=== PATIENT | male | born 1950 | race Caucasian/White ===

== ENCOUNTER 2018-07-29 12:44 | Emergency (ER) | payer OTHER ==
[~2018-07-29 12:44] MED LIST: Iopamidol 370 76% 100 ML VIAL ONE
[2018-07-29] MEDS ORDERED: Aspirin Chewable 81 MG TAB ONE (12:59)
[2018-07-29] MEDS ORDERED: Nitroglycerin 0.4 MG TAB 1 EACH ONE (12:59)
[2018-07-29 13:05] LABS: #Eosinphils 0.2 thou/uL (0.0-0.7); #Lymphocytes 1.3 thou/uL (1.20-3.40); #Monocytes 0.2 thou/uL (0.11-0.59); #Neutrophils 1.9 thou/uL (1.40-6.50); %Basophils 0.9 % (0.0-1.0); %Eosinophils 4.6 % (0.0-10.0); %Lymphocytes 36.5 % (21.0-51.0); %Monocytes 4.7 % (0.0-10.0); %Neutrophils 53.3 % (42.0-75.0); Hemoglobin 15.2 g/dL (14.0-18.0); Mean Corpuscular HGB CONC 33.3 g/dL (32.0-36.0); Mean Corpuscular Hemoglobin 29.6 pg (27.0-31.0); Mean Corpuscular Volume 88.7 fL (78.0-98.0); Mean Platelet Volume 7.7 fL (7.4-10.4); Platelet Count 128 thou/uL (130-400); RBC Distribution Width 13.9 % (11.5-14.5); Red Blood Cell (RBC) Count 5.13 mill/uL (4.70-6.10); White Blood Cell (WBC) Count 3.5 thou/uL (4.8-10.8)
--- NOTE | 2018-07-29 13:19 | RAD ---
PORTABLE CHEST: Date: 07/29/18 HISTORY: Chest pain radiating to arm. FINDINGS: Heart size and mediastinum are within normal limits. Lungs are clear of infiltrates. No significant b rebecca findings. IMPRESSION: No active intrathoracic disease. POS: [facility]
[2018-07-29 13:21] LABS: ALT (SGPT) 18 U/L (8-55); AST (SGOT) 19 U/L (5-34); Albumin 4.3 g/dL (3.4-4.8); Alkaline Phosphatase 66 U/L (40-150); Anion Gap 12 mmol/L (10-20); BUN (Urea Nitrogen) 15 mg/dL (8.4-25.7); Bilirubin, Total 0.5 mg/dL (0.2-1.2); Calc. Creatinine Clearance 0 mL/min (70-130); Calcium 9.5 mg/dL (7.8-10.44); Carbon Dioxide 23 mmol/L (23-31); Chloride 107 mmol/L (98-107); Estimated GFR-MDRD 70; Globulin 3.2 g/dL (2.4-3.5); Glucose 118 mg/dL (80-115); Lipase 37 U/L (8-78); Potassium 4.1 mmol/L (3.5-5.1); Protein, Total 7.5 g/dL (5.8-8.1); Sodium 138 mmol/L (136-145)
--- NOTE | 2018-07-29 14:21 | CT ---
CT ANGIO CHEST AND ABDOMEN PERFORMED WITH IV CONTRAST ENHANCEMENT WITH 3D RECONSTRUCTIONS: Date: 07/29/18 HISTORY: Chest and back pain. This was done per the aortic dissection protocol. FINDINGS: The lungs are clear of any infiltrative process. No pulmonary nodules are identified. No significant mediastinal, hilar, or axillary adenopathy seen. There is fairly good pulmonary artery opacification for evaluation of any central embolus, none of wh ich are seen. The thoracic aorta is normal in caliber and there are no signs of dissection. CT angio of abdomen was performed with contrast enhancement. The liver, spleen, pancreas, and gallbla dder regions appear unremarkable. Right and left adrenal glands, and right and left kidneys are normal in size. No significant periaort ic or mesenteric adenopathy. The angiographic portion of the study shows a normal caliber aorta without signs of dissection. Jessica c and superior mesenteric arteries are normal in appearance. IMPRESSION: No evidence of aortic aneurysm or dissection. POS: [facility]
== END 2018-07-29 18:15 ==
LOC: BURERS 12:44
DX: R07.89 Other chest pain (principal); M10.9 Gout, unspecified; Z87.891 Personal history of nicotine dependence; Z79.899 Other long term (current) drug therapy
CPT/HCPCS: 36415; 71045; 71275; 80053; 83690; 84484; 85025; 85379; 93005; Q9967

== ENCOUNTER 2021-11-23 13:12 | Emergency (ER) | payer OTHER ==
[2021-11-23 13:51] LABS: #Eosinphils 0.2 thou/uL (0.0-0.7); #Lymphocytes 1.2 thou/uL (1.20-3.40); #Monocytes 0.2 thou/uL (0.11-0.59); #Neutrophils 2.4 thou/uL (1.40-6.50); %Basophils 0.6 % (0.0-1.0); %Eosinophils 5.4 % (0.0-10.0); %Lymphocytes 29.9 % (21.0-51.0); %Monocytes 5.5 % (0.0-10.0); %Neutrophils 58.6 % (42.0-75.0); Hemoglobin 15.6 g/dL (14.0-18.0); Mean Corpuscular Hemoglobin 29.3 pg (27.0-31.0); Mean Corpuscular Volume 86.1 fL (78.0-98.0); Mean Platelet Volume 6.5 fL (7.4-10.4); Platelet Count 136 thou/uL (130-400); RBC Distribution Width 14.6 % (11.5-14.5); Red Blood Cell (RBC) Count 5.33 mill/uL (4.70-6.10); White Blood Cell (WBC) Count 4.1 thou/uL (4.8-10.8)
[2021-11-23] MEDS ORDERED: Metoclopramide HCl 10 MG/2 ML VIAL ONE (13:51)
[2021-11-23] MEDS ORDERED: diphenhydrAMINE 50 MG/ML VIAL ONE (13:51)
[2021-11-23 14:07] LABS: ALT (SGPT) 18 U/L (8-55); AST (SGOT) 15 U/L (5-34); Albumin 4.2 g/dL (3.4-4.8); Alkaline Phosphatase 55 U/L (40-110); Anion Gap 13 mmol/L (10-20); BUN (Urea Nitrogen) 15 mg/dL (8.4-25.7); Bilirubin, Total 0.8 mg/dL (0.2-1.2); Calc. Creatinine Clearance 0 mL/min (70-130); Calcium 9.7 mg/dL (7.8-10.44); Carbon Dioxide 24 mmol/L (23-31); Chloride 105 mmol/L (98-107); Estimated GFR 89; Globulin 3.2 g/dL (2.4-3.5); Glucose 108 mg/dL (83-110); Potassium 4.3 mmol/L (3.5-5.1); Protein, Total 7.4 g/dL (5.8-8.1); Sodium 138 mmol/L (136-145)
[2021-11-23 14:24] LABS: CKMB 2.3 ng/mL (0-6.6)
[2021-11-23] MEDS ORDERED: Aspirin Chewable 81 MG TAB ONE (14:30)
[2021-11-23 15:25] LABS: Troponin I 0.034 ng/mL (< 0.028)
[2021-11-23 15:44] LABS: SARS-CoV-2 NAA Rapid Test Not Detected (NotDetected)
== END 2021-11-23 15:40 | disposition home or self-care (01) ==
LOC: BURERS 13:12
DX: G43.909 Migraine, unspecified, not intractable, without status migrainosus (principal); I10 Essential (primary) hypertension; M10.9 Gout, unspecified; Z87.891 Personal history of nicotine dependence; Z79.899 Other long term (current) drug therapy; Z20.822 Contact with and (suspected) exposure to COVID-19
CPT/HCPCS: 36415; 70450; 71045; 80053; 82553; 83880; 84484; 85025; 93005; 96374; 96375; J1200; J2765; U0002